=== PATIENT | female | born 1965 | race Caucasian/White ===

== ENCOUNTER 2016-04-10 02:15 | Emergency (ER) | payer MEDICARE | END 2016-04-10 04:29 | disposition home or self-care (01) | LOC: ER1 02:15 | DX: F41.0 Panic disorder [episodic paroxysmal anxiety] (principal); F32.9 Major depressive disorder, single episode, unspecified; Z79.899 Other long term (current) drug therapy | CPT/HCPCS: 93005; 96372; 99283; J2060; J2550 ==

== ENCOUNTER 2016-04-13 07:47 | Emergency (ER) | payer MEDICARE | END 2016-04-13 08:30 | disposition home or self-care (01) | LOC: ER1 07:47 | DX: F41.0 Panic disorder [episodic paroxysmal anxiety] (principal); F17.200 Nicotine dependence, unspecified, uncomplicated; Z90.49 Acquired absence of other specified parts of digestive tract; Z79.899 Other long term (current) drug therapy | CPT/HCPCS: 96372; 99283; J2060 ==

== ENCOUNTER 2016-05-11 04:04 | Emergency (ER) | payer MEDICARE | END 2016-05-11 06:10 | disposition home or self-care (01) | LOC: ER1 04:04 | DX: F41.9 Anxiety disorder, unspecified (principal); T21.02XA Burn of unspecified degree of abdominal wall, initial encounter; X16.XXXA Contact with hot heating appliances, radiators and pipes, initial encounter | CPT/HCPCS: 96372; 99284; J2060; J2550 ==

== ENCOUNTER 2016-06-12 07:22 | Emergency (ER) | payer MEDICARE | END 2016-06-12 08:35 | disposition home or self-care (01) | LOC: ER1 07:22 | DX: F41.9 Anxiety disorder, unspecified (principal); R11.0 Nausea; Z79.899 Other long term (current) drug therapy | CPT/HCPCS: 96374; 99283; J2405 ==

== ENCOUNTER 2016-06-26 05:31 | Emergency (ER) | payer MEDICARE | END 2016-06-26 08:05 | disposition home or self-care (01) | LOC: ER1 05:31 | DX: F41.0 Panic disorder [episodic paroxysmal anxiety] (principal); K58.9 Irritable bowel syndrome, unspecified; I10 Essential (primary) hypertension; F32.9 Major depressive disorder, single episode, unspecified; Z90.49 Acquired absence of other specified parts of digestive tract; Z79.899 Other long term (current) drug therapy | CPT/HCPCS: 96372; 99283; J2060 ==

== ENCOUNTER 2016-07-08 08:23 | Emergency (ER) | payer MEDICARE ==
[2016-07-08 09:18] LABS: RED BLOOD COUNT 4.07 M/UL (4.00-5.10); WHITE BLOOD COUNT 9.7 K/UL (4.5-11.0)
[2016-07-08 09:41] LABS: BUN/CREATININE RATIO 30 (0-10)
== END 2016-07-08 11:40 | disposition home or self-care (01) ==
LOC: ER1 08:23
PROVIDERS: Physician Assistant
DX: F41.9 Anxiety disorder, unspecified (principal); R10.32 Left lower quadrant pain; I10 Essential (primary) hypertension; F17.210 Nicotine dependence, cigarettes, uncomplicated; Z79.899 Other long term (current) drug therapy
CPT/HCPCS: 36415; 80053; 81001; 83690; 85025; 99284; Q0177

== ENCOUNTER 2016-07-13 20:36 | Emergency (ER) | payer MEDICARE | END 2016-07-14 | disposition home or self-care (01) | LOC: ER1 20:36 | DX: F41.8 Other specified anxiety disorders (principal) | CPT/HCPCS: 99283 ==

== ENCOUNTER 2016-07-22 03:27 | Emergency (ER) | payer MEDICARE | END 2016-07-22 04:08 | disposition left against medical advice (07) | LOC: ER1 03:27 | DX: F41.9 Anxiety disorder, unspecified (principal); F32.9 Major depressive disorder, single episode, unspecified | CPT/HCPCS: 36415; 99283 ==

== ENCOUNTER 2016-07-30 07:03 | Emergency (ER) | payer MEDICARE | END 2016-07-30 13:25 | disposition home or self-care (01) | LOC: ER1 07:03 | DX: R10.9 Unspecified abdominal pain (principal); F41.9 Anxiety disorder, unspecified | CPT/HCPCS: 96372; 99283; J2060; J2270; J2550 ==

== ENCOUNTER → 2016-08-02 | Outpatient (CLI) | payer MEDICARE | LOC: KOH-I 11:20 | DX: R07.81 Pleurodynia (principal); S22.31XA Fracture of one rib, right side, initial encounter for closed fracture | CPT/HCPCS: 71101 ==

== ENCOUNTER 2016-08-04 06:42 | Emergency (ER) | payer MEDICARE | END 2016-08-04 09:15 | disposition home or self-care (01) | LOC: ER1 06:42 | DX: S22.41XD Multiple fractures of ribs, right side, subsequent encounter for fracture with routine healing (principal); F41.1 Generalized anxiety disorder; M79.671 Pain in right foot; F17.210 Nicotine dependence, cigarettes, uncomplicated; W18.39XD Other fall on same level, subsequent encounter | CPT/HCPCS: 96372; 96374; 99283; J2060; J2270; J2405; J3486 ==

== ENCOUNTER 2020-02-11 08:20 | Emergency (ER) | payer OTHER ==
[~2020-02-11 08:20] MED LIST: ABILIFY 5 MG TAB5 MG PO; ALPRAZOLAM0.5 MG PO; BUPRENORPHIN-N1 EACH SL; CENTRUM SILVER1 EAC1 PO; DAIRY RELIE3000 UNIT PO; DESVENLAFAXINE50 M1 PO; MELATONIN10 MG PO
== END 2020-02-11 11:26 | disposition home or self-care (01) ==
LOC: ER1 08:20
DX: F41.1 Generalized anxiety disorder (principal)
CPT/HCPCS: 99283

== ENCOUNTER 2020-04-16 07:14 | Emergency (ER) | payer OTHER | END 2020-04-16 11:37 | disposition home or self-care (01) | LOC: ER1 07:14 | DX: F41.9 Anxiety disorder, unspecified (principal) | CPT/HCPCS: 96372; 99284; J2060; J2550 ==

== ENCOUNTER 2020-05-26 09:56 | Emergency (ER) | payer OTHER ==
[2020-05-26 12:01] LABS: HEMOGLOBIN 12.5 gm/dl (12.3-15.3); RED BLOOD COUNT 3.86 M/UL (4.00-5.10); WHITE BLOOD COUNT 11.1 K/UL (4.5-11.0)
[2020-05-26 12:24] LABS: BUN/CREATININE RATIO 22 (0-10)
== END 2020-05-26 15:13 | disposition home or self-care (01) ==
LOC: ER1 09:56
PROVIDERS: Physician Assistant
DX: R11.2 Nausea with vomiting, unspecified (principal); R51.9 Headache, unspecified; F41.9 Anxiety disorder, unspecified; F17.210 Nicotine dependence, cigarettes, uncomplicated; Z79.899 Other long term (current) drug therapy
CPT/HCPCS: 80053; 85025; 96374; 99283

== ENCOUNTER 2020-06-09 05:12 | Emergency (ER) | payer OTHER | END 2020-06-09 08:50 | disposition home or self-care (01) | LOC: ER1 05:12 | DX: F41.0 Panic disorder [episodic paroxysmal anxiety] (principal); F17.200 Nicotine dependence, unspecified, uncomplicated | CPT/HCPCS: 96372; 99283; J2060; J2550 ==

== ENCOUNTER 2020-06-13 09:52 | Emergency (ER) | payer OTHER | END 2020-06-13 12:15 | disposition home or self-care (01) | LOC: ER1 09:52 | DX: F41.0 Panic disorder [episodic paroxysmal anxiety] (principal); R11.0 Nausea; R10.817 Generalized abdominal tenderness | CPT/HCPCS: 96372; 99283; J2550 ==

== ENCOUNTER 2020-07-12 01:57 | Emergency (ER) | payer OTHER ==
[2020-07-12] MEDS ORDERED: PHENERGAN 25 MG25 M1 PO (04:12)
== END 2020-07-12 04:51 | disposition home or self-care (01) ==
LOC: ER1 01:57
DX: R11.2 Nausea with vomiting, unspecified (principal); F41.9 Anxiety disorder, unspecified; F17.200 Nicotine dependence, unspecified, uncomplicated; Z76.5 Malingerer [conscious simulation]
CPT/HCPCS: 96372; 99283; J2060; J2550

== ENCOUNTER 2020-07-12 09:39 | Emergency (ER) | payer OTHER ==
[~2020-07-12 09:39] MED LIST changes: +PHENERGAN 25 MG25 M1 PO
== END 2020-07-12 16:40 | disposition home or self-care (01) ==
LOC: ER1 09:39
DX: F41.9 Anxiety disorder, unspecified (principal)
CPT/HCPCS: J2060; J2550

== ENCOUNTER → 2020-09-13 | Outpatient (CLI) | payer OTHER | LOC: KOH-I 12:43 | DX: M53.3 Sacrococcygeal disorders, not elsewhere classified (principal); M79.604 Pain in right leg | CPT/HCPCS: 72170; 73502; 73590 ==

== ENCOUNTER → 2021-01-10 | Outpatient (CLI) | payer OTHER | LOC: MAMO 14:00 | DX: N64.59 Other signs and symptoms in breast (principal) | CPT/HCPCS: 76641-RT; 77066; G0279 ==

== ENCOUNTER 2021-04-16 12:44 | Emergency (ER) | payer OTHER | END 2021-04-16 14:13 | disposition home or self-care (01) | LOC: ER1 12:44 | DX: F41.9 Anxiety disorder, unspecified (principal); F17.200 Nicotine dependence, unspecified, uncomplicated | CPT/HCPCS: 96372; 99283; J2060 ==

== ENCOUNTER → 2021-10-03 | Outpatient (CLI) | payer OTHER | LOC: KOH-I 15:07 | DX: M25.441 Effusion, right hand (principal); M25.442 Effusion, left hand | CPT/HCPCS: 73130 ==